=== PATIENT | female | born 1970 | race Caucasian/White ===

== ENCOUNTER 2017-03-17 20:49 | Emergency (ER) | payer MEDICAID ==
[~2017-03-17] VITALS: Ht 149.9 cm; Wt 63.5 kg
[2017-03-17 20:52] VITALS: BP 134/97
--- NOTE | 2017-03-17 20:59 | NUR ---
PT TAKEN TO BED 8
--- NOTE | 2017-03-17 21:04 | NUR ---
PT IS 46/F BIB FAMILY TO ED WITH C/O BACK PAIN X 6 DAYS. NO TRAUMA NOR INJURY. NO MEDICAL HX. DENIES N/V/D; SKIN IS PINK/WARM/DRY; AAOX4 WITH EVEN AND STEADY GAIT; LUNGS CLEAR BL; HR EVEN AND REGULAR; PT DENIES ANY FEVER, CP, SOB, OR COUGH AT THIS TIME; PATIENT STATES PAIN OF 7/10 AT THIS TIME; VSS; PATIENT POSITIONED FOR COMFORT; HOB ELEVATED; BEDRAILS UP X2; BED DOWN. ER MD MADE AWARE OF PT STATUS.
--- NOTE | 2017-03-17 21:24 | NUR ---
Dr. Moran evaluating patient at bedside.
--- NOTE | 2017-03-17 22:08 | NUR ---
PT RETURN FROM XRAY
[2017-03-17 22:15] LABS: BASOPHILS # (AUTO) 0.4 K/uL (0.00-0.22); EOSINOPHILS # (AUTO) 0.2 K/uL (0-0.4); EOSINOPHILS % (AUTO) 1.9 % (0.0-4.0); HEMATOCRIT 42.5 % (36-48); HEMOGLOBIN 13.5 g/dL (12.0-16.0); LYMPHOCYTES # (AUTO) 4.6 K/uL (2.5-16.5); LYMPHOCYTES % (AUTO) 36.8 % (20.5-51.1); MEAN CORPUSCULAR HEMOGLOBIN 26 pg (27-31); MEAN CORPUSCULAR HGB CONC 32 g/dL (33-37); MEAN CORPUSCULAR VOLUME 82 fL (80-94); MONOCYTES # (AUTO) 1.1 K/uL (0.8-1.0); MONOCYTES % (AUTO) 8.6 % (1.7-9.3); NEUTROPHILS # (AUTO) 6.2 K/uL (1.8-7.7); PLATELET COUNT (AUTO) 341 K/uL (140-450); RED BLOOD CELL COUNT(AUTO) 5.18 MIL/uL (4.20-5.40); RED CELL DISTRIBUTION WIDTH 12.8 % (11.6-13.7); WHITE BLOOD COUNT (AUTO) 12.5 K/uL (4.8-10.8)
[2017-03-17 22:18] LABS: INR 1.1 (0.8-1.2); PARTIAL THROMBOPLASTIN TIME 28.7 secs (22-35.6)
[2017-03-17 22:27] LABS: POTASSIUM 3.6 mmol/L (3.5-5.1)
[2017-03-17] MEDS: IBUPROFEN 800 MG TAB PO ONE (22:27)
[2017-03-17 22:28] LABS: ALBUMIN 3.7 g/dL (3.4-5.0); ANION GAP 11.6 (8-16); CREATININE 1.1 mg/dL (0.6-1.3); TOTAL BILIRUBIN 0.2 mg/dL (0.0-1.0); TOTAL PROTEIN, SERUM 7.8 g/dL (6.4-8.2)
[2017-03-17] MEDS: HYDROcodone/APAP 10/325 MG 1 TAB TAB PO STA (22:28)
--- NOTE | 2017-03-17 22:52 | NUR ---
PT RESTING IN BED. NO SOB NOTED. FAMILY AT BEDSIDE. WILL CONTINUE TO MONITOR.
[2017-03-17 23:47] VITALS: BP 122/86
--- NOTE | 2017-03-17 23:48 | NUR ---
Patient discharged with v/s stable. Written and verbal after care instructions given and explained. Patient alert, oriented and verbalized understanding of instructions. Ambulatory with steady gait. All questions addressed prior to discharge. ID band removed. Patient advised to follow up with PMD. Rx of FLEXERIL, IBUPROFEN, NORCO given. Patient educated on indication of medication including possible reaction and side effects. Opportunity to ask questions provided and answered. D/C INSTRUCTIONS AND TEACHING DONE BY ER MD DR THOMSON.
== END 2017-03-17 23:48 | disposition home or self-care (01) ==
LOC: MED 20:49
DX: S29.012A Strain of muscle and tendon of back wall of thorax, initial encounter (principal); X58.XXXA Exposure to other specified factors, initial encounter; Y93.89 Activity, other specified; Y92.89 Other specified places as the place of occurrence of the external cause; Y99.8 Other external cause status
CPT/HCPCS: 36415; 71010; 72110; 80053; 81002; 81025; 83880; 84484; 85025; 85610; 85730; 93005; 99285

== ENCOUNTER 2017-04-01 16:11 | Inpatient (IN) | payer MEDICAID ==
[~2017-04-01] VITALS: Ht 149.9 cm; Wt 64.4 kg
[2017-04-01 16:22] VITALS: BP 154/95
--- NOTE | 2017-04-01 17:59 | NUR ---
PT AMBULATED TO ER BED #3.
--- NOTE | 2017-04-01 18:00 | NUR ---
46 YO FEMALE BIB SELF FOR LEFT FLANK PAIN FOR 1 WEEK. PAIN 10/10 SHARP NON-RADIAITING. PT HAS NAUSEA BUT DENIES V/D. AAOx4, PERRLA, BREATHING EVEN AND UNLABORED. ERMD NOTIFIED OF PATIENT STATUS.
[2017-04-01] MEDS ORDERED: NACL 0.9% 1,000 ML IV SCH (18:01)
[2017-04-01] MEDS ORDERED: NACL 0.9% 500 ML IV SCH (18:02)
[2017-04-01] MEDS ORDERED: MORPHINE SULFATE 10 MG/ML SYR IVP ONE (18:05)
[2017-04-01] MEDS ORDERED: FAMOTIDINE 20 MG/2 ML VIAL IVP ONE (18:05)
[2017-04-01] MEDS ORDERED: ONDANSETRON 4 MG/2 ML VIAL IVP ONE (18:05)
--- NOTE | 2017-04-01 18:05 | NUR ---
Patient being evaluated by physician at bedside.
[2017-04-01 18:21] LABS: HEMATOCRIT 41.2 % (36-48); HEMOGLOBIN 13.2 g/dL (12.0-16.0); MEAN CORPUSCULAR HEMOGLOBIN 26 pg (27-31); MEAN CORPUSCULAR HGB CONC 32 g/dL (33-37); MEAN CORPUSCULAR VOLUME 82 fL (80-94); PLATELET COUNT (AUTO) 365 K/uL (140-450); RED BLOOD CELL COUNT(AUTO) 5.01 MIL/uL (4.20-5.40); RED CELL DISTRIBUTION WIDTH 12.6 % (11.6-13.7); WHITE BLOOD COUNT (AUTO) 19.1 K/uL (4.8-10.8)
[2017-04-01 18:33] LABS: ANION GAP 15.8 (8-16); CALCIUM 9.2 mg/dL (8.5-10.1); CARBON DIOXIDE 25.5 mmol/L (21-32); CREATININE 0.7 mg/dL (0.6-1.3); POTASSIUM 3.3 mmol/L (3.5-5.1)
[2017-04-01 18:39] LABS: ALBUMIN 3.9 g/dL (3.4-5.0); TOTAL BILIRUBIN 0.4 mg/dL (0.0-1.0); TOTAL PROTEIN, SERUM 8.2 g/dL (6.4-8.2)
[2017-04-01] MEDS ORDERED: cefTRIAXone 2,000 MG in DEXTROSE 5% 100 ML IV ONE (18:45)
[2017-04-01] MEDS ORDERED: cefTRIAXone 2,000 MG VIAL ONE (18:54)
[2017-04-01 19:00] LABS: BAND % (MANUAL) 3 % (0-8); EOSINOPHILS % (MANUAL) 1 % (0-4); LYMPHOCYTES % (MANUAL) 18 % (20-46); MONOCYTES % (MANUAL) 6 % (5-12); NEUTROPHILS % (MANUAL) 72 (43-65)
--- NOTE | 2017-04-01 19:00 | NUR ---
Pt report given to YANETH ZAMORA. Transfer of care at this time.
[2017-04-01 19:01] LABS: PLATELET ESTIMATE ADEQUATE
--- NOTE | 2017-04-01 19:10 | NUR ---
PT STABLE, VSS. CURRENTLY RECEIVING IV AMTIBIOTICS AD IV FLUIDS.
[2017-04-01 19:13] LABS: BILIRUBIN,URINE NEGATIVE (NEGATIVE); BLOOD, URINE 2+ (NEGATIVE); COLOR,URINE YELLOW (YELLOW); LEUKOCYTE ESTERASE ,URINE 2+ (NEGATIVE); NITRITE, URINE POSITIVE (NEGATIVE); PH,URINE 5.5 (5.0-9.0); PROTEIN,URINE NEGATIVE (NEGATIVE); UGLUCOSE NEGATIVE (NEGATIVE); UROBILINOGEN,URINE 0.2 EU/dL (0.2 - 1)
[2017-04-01 19:14] LABS: APPEARANCE,URINE HAZY (CLEAR)
[2017-04-01 19:21] LABS: BACTERIA,URINE 1+ /HPF (None Seen); RBC,URINE 0-5 (RARE) /HPF (0-5); SQUAMOUS EPITHELIAL CELL,UR 4-10 (MOD) /LPF (0-3 (FEW)); WBC,URINE >100 /HPF (0-5)
--- NOTE | 2017-04-01 19:29 | NUR ---
Patient will be admitted to care of DR CASTRO. Admited to TELEMETRY. Will go to room 123 B. Belongings list completed. Report to YANETH AUSTIN.
--- NOTE | 2017-04-01 19:35 | NUR ---
Admitted from [facility] with chief complaint of LEFT FLANK PAIN. A 46 y/o. Female, Appropriate. ICELANDIC-SPEAKING ONLY. FAMILY AT BEDSIDE DURING ADMISSION WHO CAN UNDERSTAND AND SPEAK ICELANDIC WELL. ALERT AWAKE ORIENTED X4. INITIAL ASSESSMENT DONE. NO S/S OF RESPIRATORY DISTRESS OR SOB NOTED. NO C/O PAIN OR ANY DISCOMFORT AT THIS TIME. SKIN IS INTACT CLEAN DRY AND WARM TO TOUCH. PLAN OF CARE REVIEWED TO PT AND FAMILY AT BEDSIDE AND VERBALIZED UNDERSTANDING. oriented to call light, bed, phone,television, bathroom, smoking policy, visiting hours, procedures, ID bracelet on. Belongings list checked. CALL LIGHT WITHIN REACH. WILL CONTINUE TO MONITOR.
--- NOTE | 2017-04-01 19:35 | NUR ---
PT TRAFERRED TO TELEMETRY FLOOR VIA KIKE ACCOMPANIED BY RN AND EMT. PT LAM, SUDHAS.
[2017-04-01] MEDS ORDERED: ONDANSETRON 4 MG/2 ML VIAL IVP PRN (19:40)
[2017-04-01] MEDS ORDERED: DOCUSATE SODIUM 100 MG GELCAP PO PRN (19:40)
[2017-04-01] MEDS ORDERED: POTASSIUM CHLORIDE 20% 40 MEQ/15 ML UDC PO ONE (19:45)
--- NOTE | 2017-04-01 19:50 | NUR ---
ULTRASOUND AT BEDSIDE.
[2017-04-01] MEDS: NACL 0.9% 1,000 ML IV SCH (20:00)
[2017-04-01 20:30] LABS: AMPHETAMINE, URINE NEG. ng/ml (NEG <=1000); BARBITURATE, URINE NEG. ng/ml (NEG <=200); BENZODIAZEPINE, URINE NEG. ng/mL (NEG <=200); CANNABINOID, URINE NEG. ng/mL (NEG <=50); COCAINE, URINE NEG. ng/mL (NEG <=300); OPIATE, URINE NEG. ng/mL (NEG <=2000); PHENCYCLIDINE SCREEN,URINE NEG. ng/mL (NEG <=25)
[2017-04-01 20:35] LABS: PARTIAL THROMBOPLASTIN TIME 29.6 secs (22-35.6); PROTHROMBIN TIME 9.4 secs (10.8-13.4)
[2017-04-01 20:37] LABS: CHOL/HDL RATIO 6.5 (1-4.5); PHOSPHORUS 2.8 mg/dL (2.5-4.9)
[2017-04-01 20:45] LABS: THYROID STIMULATING HORMONE 1.4 uIU/mL (0.34-3.76)
--- NOTE | 2017-04-01 21:00 | NUR ---
PT REFUSED TO HAVE SCD'S ON DESPITE EXPLAINING THE RISKS AND BENEFITS OF IT BECAUSE PT SAID THAT IT CAN MAKE HER UNCOMFORTABLE. WILL TRY TO CONVINCE HER AGAIN LATER. WILL CONTINUE TO MONITOR.
[2017-04-01] MEDS: ACETAMINOPHEN 325 MG TAB PO PRN (22:59)
[2017-04-02] VITALS: BP 125/70
--- NOTE | 2017-04-02 00:30 | NUR ---
PT IS SLEEPING RIGHT NOW BUT EASILY AROUSABLE. NO S/S OF ANY DISCOMFORT AT THIS TIME. ALL NEEDS ARE ATTENDED. CALL LIGHT WITHIN REACH. WILL CONTINUE TO MONITOR.
[2017-04-02 04:00] VITALS: BP 121/73
--- NOTE | 2017-04-02 05:40 | NUR ---
AM CARE RENDERED. BED LINEN CHANGED. INSTRUCTED PT TO REPOSITION. KEPT CLEAN AND DRY. CALL LIGHT WITHIN REACH. WILL CONTINUE TO MONITOR.
[2017-04-02] MEDS: NACL 0.9% 1,000 ML IV SCH ×2 (05:51→15:55)
[2017-04-02] MEDS: MORPHINE SULFATE 2 MG/ML SYR IVP PRN (06:35)
--- NOTE | 2017-04-02 07:22 | NUR ---
PT HAS NO S/S OF ANY DISCOMFORT. PLAN OF CARE ENDORSED TO ALEXA WOLFE AT BEDSIDE FOR CONTINUITY OF CARE.
--- NOTE | 2017-04-02 07:24 | NUR ---
RECEIVED REPORT FROM NIGHT YANETH AUSTIN. PT WASHING HANDS AT SINK. NO S/S OF ACUTE DISTRESS. AAOX4. PT STATES PAIN IS 1/10 AND REDUCED. PT ASSISTED BACK TO BED. SCD'S PLACED ON BLE. IV SITE PATENT AND INTACT. TELE BOX IN PLACE. CALL LIGHT WITHIN REACH. SAFETY MEASURES ENSURED. WILL CONTINUE TO MONITOR.
[2017-04-02 07:55] VITALS: BP 135/78
[2017-04-02] MEDS: LACTOBACILLUS RHAMNOSUS GG 1 EACH CAP PO SCH (09:01)
[2017-04-02] MEDS: PHENAZOPYRIDINE 100 MG TAB PO SCH ×3 (09:01→17:41)
--- NOTE | 2017-04-02 09:12 | NUR ---
AM MEDICATIONS GIVEN WITH EDUCATION. PT VERBALIZED UNDERSTANDING. PT TOLERATED WELL. NO S/S OF ACUTE DISTRESS. PT DENIES PAIN. CALL LIGHT WITHIN REACH. FAMILY AT BEDSIDE. WILL CONTINUE TO MONITOR.
--- NOTE | 2017-04-02 10:12 | NUR ---
PATIENT HAS BEEN SCREENED AND CATEGORIZED MODERATE NUTRITION RISK. PATIENT WILL BE SEEN WITHIN 3-5 DAYS OF ADMISSION. 04/04/17-04/06/[address]
--- NOTE | 2017-04-02 11:39 | NUR ---
PT UP AND AMBULATING TO BATHROOM. NO S/S OF ACUTE DISTRESS. PT DENIES PAIN. CALL LIGHT WITHIN REACH. SAFETY MEASURES ENSURED. WILL CONTINUE TO MONITOR.
[2017-04-02] MEDS ORDERED: PANTOPRAZOLE 40 MG INJ VIAL IVP SCH (11:45)
[2017-04-02 11:54] LABS: BASOPHILS # (AUTO) 0.1 K/uL (0.00-0.22); EOSINOPHILS # (AUTO) 0.1 K/uL (0-0.4); HEMATOCRIT 36.6 % (36-48); HEMOGLOBIN 12.1 g/dL (12.0-16.0); LYMPHOCYTES % (AUTO) 24.3 % (20.5-51.1); MEAN CORPUSCULAR HEMOGLOBIN 27 pg (27-31); MEAN CORPUSCULAR HGB CONC 33 g/dL (33-37); MEAN CORPUSCULAR VOLUME 81 fL (80-94); MONOCYTES # (AUTO) 0.7 K/uL (0.8-1.0); NEUTROPHILS # (AUTO) 8.5 K/uL (1.8-7.7); NEUTROPHILS % (AUTO) 67.7 % (42.2-75.2); PLATELET COUNT (AUTO) 336 K/uL (140-450); RED BLOOD CELL COUNT(AUTO) 4.49 MIL/uL (4.20-5.40); RED CELL DISTRIBUTION WIDTH 12.6 % (11.6-13.7); WHITE BLOOD COUNT (AUTO) 12.4 K/uL (4.8-10.8)
[2017-04-02 12:08] LABS: ANION GAP 13.2 (8-16); CALCIUM 8.3 mg/dL (8.5-10.1); CARBON DIOXIDE 25.2 mmol/L (21-32); CREATININE 0.7 mg/dL (0.6-1.3); POTASSIUM 3.4 mmol/L (3.5-5.1)
[2017-04-02 12:12] LABS: MAGNESIUM 1.7 mg/dL (1.8-2.4); PHOSPHORUS 2.9 mg/dL (2.5-4.9)
[2017-04-02] MEDS: FAMOTIDINE 20 MG/2 ML VIAL IV SCH (12:25)
--- NOTE | 2017-04-02 13:37 | NUR ---
PT RESTING IN BED. NO S/S OF ACUTE DISTRESS. PT DENIES PAIN. CALL LIGHT WITHIN REACH. SAFETY MEASURES ENSURED. WILL CONTINUE TO MONITOR.
--- NOTE | 2017-04-02 15:36 | NUR ---
PT RESTING IN BED. NO S/S OF ACUTE DISTRESS. PT DENIES PAIN. CALL LIGHT WITHIN REACH. SAFETY MEASURES ENSURED. WILL CONTINUE TO MONITOR.
[2017-04-02 16:00] VITALS: BP 127/77
--- NOTE | 2017-04-02 19:28 | NUR ---
ENDORSED PLAN OF CARE TO NIGHT RN. PT REMAINS IN STABLE CONDITION.
--- NOTE | 2017-04-02 20:00 | NUR ---
RECEIVED ALERT,ORIENTED,AMBULATORY,AZERBAIJANI SPEAKING ONLY. AFEBRILE, NOT IN ACUTE DISTRESS. VERBALIZED LEFT FLANK PAIN. IV FLUIDS NS INFUSING AT 100 ML/HR VIA RIGHT AC #20 IV LINE. FAMILY MEMBERS AT BEDSIDE. VS STABLE, WILL CONTINUE TO MONITOR. NEEDS ATTENDED.
[2017-04-02] MEDS: ACETAMINOPHEN 325 MG TAB PO PRN (21:10)
--- NOTE | 2017-04-02 21:10 | NUR ---
PT.OFFERED MORPHINE IVP OR TYLENOL PO FOR PAIN. PT. REFUSED MORPHINE. TYLENOL 325 MG PO GIVEN.
[2017-04-03] VITALS: BP 110/71
--- NOTE | 2017-04-03 | NUR ---
AWAKE,NOT IN ANY KIND OF DISTRESS. NO PAIN OR DISCOMFORT NOTED. SIDE RAILS UP,CALL LIGHT WITHIN REACH. KEPT WARM AND COMFORTABLE. VS REMAIN STABLE.
[2017-04-03] MEDS: NACL 0.9% 1,000 ML IV SCH ×4 (02:21→22:58)
--- NOTE | 2017-04-03 04:00 | NUR ---
ASLEEP,NOT IN ANY KIND OF DISTRESS. NO PAIN OR DISCOMFORT NOTED. NO SIGNIFICANT CHANGE IN CONDITION. WILL CONTINUE TO MONITOR.
[2017-04-03 06:20] LABS: BASOPHILS # (AUTO) 0.1 K/uL (0.00-0.22); BASOPHILS % (AUTO) 0.8 % (0.0-2.0); EOSINOPHILS # (AUTO) 0.2 K/uL (0-0.4); HEMATOCRIT 37.5 % (36-48); HEMOGLOBIN 12.6 g/dL (12.0-16.0); LYMPHOCYTES # (AUTO) 4.1 K/uL (2.5-16.5); LYMPHOCYTES % (AUTO) 33.3 % (20.5-51.1); MEAN CORPUSCULAR HEMOGLOBIN 27 pg (27-31); MEAN CORPUSCULAR HGB CONC 34 g/dL (33-37); MEAN CORPUSCULAR VOLUME 82 fL (80-94); MONOCYTES # (AUTO) 0.9 K/uL (0.8-1.0); NEUTROPHILS # (AUTO) 6.9 K/uL (1.8-7.7); NEUTROPHILS % (AUTO) 56.9 % (42.2-75.2); PLATELET COUNT (AUTO) 348 K/uL (140-450); RED BLOOD CELL COUNT(AUTO) 4.61 MIL/uL (4.20-5.40); RED CELL DISTRIBUTION WIDTH 12.6 % (11.6-13.7); WHITE BLOOD COUNT (AUTO) 12.2 K/uL (4.8-10.8)
[2017-04-03 06:45] LABS: ANION GAP 12.3 (8-16); CALCIUM 8.5 mg/dL (8.5-10.1); CARBON DIOXIDE 26.3 mmol/L (21-32); CREATININE 0.7 mg/dL (0.6-1.3); POTASSIUM 3.6 mmol/L (3.5-5.1)
[2017-04-03 06:57] LABS: MAGNESIUM 1.8 mg/dL (1.8-2.4); PHOSPHORUS 3.2 mg/dL (2.5-4.9)
--- NOTE | 2017-04-03 07:15 | NUR ---
ENDORSED CARE TO ALEXA WOLFE.
--- NOTE | 2017-04-03 07:17 | NUR ---
RECEIVED REPORT FROM NIGHT RN. PT RESTING IN BED. AAOX4. NO S/S OF ACUTE DISTRESS. PT DENIES PAIN. IV SITE PATENT AND INTACT. SCD'S AT BEDSIDE. CALL LIGHT WITHIN REACH. SAFETY MEASURES ENSURED. WILL CONTINUE TO MONITOR.
[2017-04-03 07:52] VITALS: BP 115/68
[2017-04-03] MEDS: PHENAZOPYRIDINE 100 MG TAB PO SCH ×3 (08:53→17:13)
[2017-04-03] MEDS: LACTOBACILLUS RHAMNOSUS GG 1 EACH CAP PO SCH (08:53)
--- NOTE | 2017-04-03 08:57 | NUR ---
AM MEDS GIVEN WITH EDUCATION. PT VERBALIZED UNDERSTANDING. NO S/S OF ACUTE DISTRESS. PT TOLERATED WELL. WILL CONTINUE TO MONITOR.
--- NOTE | 2017-04-03 10:04 | NUR ---
PT RESTING IN BED. NO S/S OF ACUTE DISTRESS. PT DENIES PAIN. CALL LIGHT WITHIN REACH. SAFETY MEASURES ENSURED. WILL CONTINUE TO MONITOR.
--- NOTE | 2017-04-03 12:01 | NUR ---
PT STATES SHE FEELS PALPITATIONS. PULSES REGULAR. NO S/S OF ACUTE DISTRESS. DR. MINOR MADE AWARE.
[2017-04-03] MEDS: FAMOTIDINE 20 MG/2 ML VIAL IV SCH (12:30)
--- NOTE | 2017-04-03 12:34 | NUR ---
PT STATES SHE IS HAVING 4/10 PAIN BUT REFUSES ANY PAIN MEDICATION AT THIS TIME.
[2017-04-03] MEDS: MORPHINE SULFATE 2 MG/ML SYR IVP PRN (13:40)
[2017-04-03 16:00] VITALS: BP 110/72
--- NOTE | 2017-04-03 16:13 | NUR ---
PT RESTING IN BED. NO S/S OF ACUTE DISTRESS. PT STATES PAIN IS 1/10. AT BEDSIDE. WILL CONTINUE TO MONITOR.
--- NOTE | 2017-04-03 19:30 | NUR ---
ENDORSED PLAN OF CARE TO NIGHT RN. PT REMAINS IN STABLE CONDITION.
--- NOTE | 2017-04-03 19:30 | NUR ---
Patient's Plan of Care was discussed and reviewed with SUBSEA ENGINEER: SURJIT
--- NOTE | 2017-04-03 19:31 | NUR ---
RECD. RESTING IN BED, AWAKE, A/OX4. RESPIRATION EVEN AND UNLABORED. IV OF NS AT 100 ML/HR INFUSING, RIGHT AC G20. [id number] WITH FAMILY AT THE BEDSIDE. STATED WITH ON AND OFF PAIN IN LOWER BACK AND ABDOMEN, 12/14. WILL MEDICATE ORDERED. PLAN OF CARE FOR THE SHIFT DISCUSSED. VERBALIZED UNDERSTANDING.
[2017-04-03] MEDS: HYDROcodone/APAP 7.5/325 MG 1 TAB PO PRN (19:57)
[2017-04-03] MEDS ORDERED: ZOLPIDEM 10 MG TAB PO SCH (22:10)
--- NOTE | 2017-04-03 22:15 | NUR ---
PAGED DR. VERA, INQUIRED IF HE IS COMING TO SEE PATIENT TONIGHT ENDORSED BY AM NURSE. STATED HE INFORMED RESIDENT THAT HE WILL NOT BE ABLE TO SURGERY TOMORROW ON PATIENT, NEED TO ORDER ANOTHER SURGEON TO SEE PATIENT.
--- NOTE | 2017-04-03 22:58 | NUR ---
UNABLE TO SLEEP, MEDICATED WITH AMBIEN 10 MG. PO ORDERED.
--- NOTE | 2017-04-03 23:00 | NUR ---
INFORMED DR. CASTRO REGARDING NEED FOR ANOTHER SURGERY CONSULT, WILL TAKE GOOD CARE OF THIS IN THE MORNING.
[2017-04-04] VITALS: BP 130/64
--- NOTE | 2017-04-04 | NUR ---
SLEEPING COMFORTABLY IN BED.
--- NOTE | 2017-04-04 02:00 | NUR ---
TRANFERRED TO ROOM 116.
[2017-04-04] MEDS: HYDROcodone/APAP 7.5/325 MG 1 TAB PO PRN ×2 (03:56→10:51)
[2017-04-04] MEDS: SIMETHICONE 80 MG TAB.CHEW PO SCH ×2 (05:28→12:22)
--- NOTE | 2017-04-04 05:28 | NUR ---
COMPLAINT OF FEELING OF GAS, MEDICATED WITH MYLICON ORDERED.
[2017-04-04 06:29] LABS: BASOPHILS # (AUTO) 0.1 K/uL (0.00-0.22); BASOPHILS % (AUTO) 0.9 % (0.0-2.0); EOSINOPHILS # (AUTO) 0.2 K/uL (0-0.4); EOSINOPHILS % (AUTO) 2.2 % (0.0-4.0); HEMOGLOBIN 11.8 g/dL (12.0-16.0); LYMPHOCYTES # (AUTO) 2.7 K/uL (2.5-16.5); LYMPHOCYTES % (AUTO) 29.9 % (20.5-51.1); MEAN CORPUSCULAR HEMOGLOBIN 27 pg (27-31); MEAN CORPUSCULAR HGB CONC 33 g/dL (33-37); MEAN CORPUSCULAR VOLUME 83 fL (80-94); MONOCYTES # (AUTO) 0.8 K/uL (0.8-1.0); MONOCYTES % (AUTO) 9.4 % (1.7-9.3); NEUTROPHILS # (AUTO) 5.1 K/uL (1.8-7.7); NEUTROPHILS % (AUTO) 57.6 % (42.2-75.2); PLATELET COUNT (AUTO) 313 K/uL (140-450); RED BLOOD CELL COUNT(AUTO) 4.37 MIL/uL (4.20-5.40); RED CELL DISTRIBUTION WIDTH 12.6 % (11.6-13.7); WHITE BLOOD COUNT (AUTO) 8.9 K/uL (4.8-10.8)
[2017-04-04 06:46] LABS: ANION GAP 12.9 (8-16); CALCIUM 8.2 mg/dL (8.5-10.1); CARBON DIOXIDE 25.5 mmol/L (21-32); CREATININE 0.7 mg/dL (0.6-1.3); POTASSIUM 3.4 mmol/L (3.5-5.1)
--- NOTE | 2017-04-04 06:48 | NUR ---
CONDITION REMAIN STABLE. WILL ENDORSE TO AM NURSE ELLIS CONTINUITY OF CARE.
[2017-04-04 06:53] LABS: MAGNESIUM 1.7 mg/dL (1.8-2.4); PHOSPHORUS 3.1 mg/dL (2.5-4.9)
--- NOTE | 2017-04-04 07:20 | NUR ---
ENDORSED TO RADHA RN FOR CONTINUITY OF CARE.
--- NOTE | 2017-04-04 07:21 | NUR ---
PT ALERT AND ORIENTED X4, CZECH SPEAKING. BREATHING EVENLY AND UNLABORED, NO SIGNS OF ACUTE DISTRESS. SKIN IS WARM AND DRY. NO SIGNS OF ANY BOWEL/BLADDER DISCOMFORT. NOM C/O ANY PAIN OR DISCOMFORT AT THIS TIME, ALL NEEDS ATTENDED, SAFETY PRECAUTIONS MAINTAINED. CALL LIGHT WITHIN REACH.
--- NOTE | 2017-04-04 07:47 | NUR ---
RECEIVED ORDER FROM DR. MINOR, MARCH D/C PATIENT TODAY. NOTED AND CARRIED OUT.
[2017-04-04 08:00] VITALS: BP 126/78
[2017-04-04] MEDS ORDERED: MAGNESIUM OXIDE 400 MG TAB PO SCH (08:12)
[2017-04-04] MEDS ORDERED: POTASSIUM CHLORIDE 10 MEQ TABER PO SCH (08:12)
[2017-04-04] MEDS ORDERED: ACET-2869 PO (08:54)
[2017-04-04] MEDS ORDERED: ATOR40TA PO (08:54)
[2017-04-04] MEDS ORDERED: IBUP-2213 PO (08:54)
[2017-04-04] MEDS ORDERED: LACT10CA PO (08:54)
[2017-04-04] MEDS ORDERED: SIME80CT27 PO (08:54)
[2017-04-04] MEDS ORDERED: CIPR500T4 PO (08:54)
[2017-04-04] MEDS ORDERED: DOCU-67 PO (08:54)
[2017-04-04] MEDS ORDERED: METH750T5 PO (08:54)
[2017-04-04] MEDS ORDERED: ONDA4TAB PO (08:54)
[2017-04-04] MEDS: NACL 0.9% 1,000 ML IV SCH (09:00)
[2017-04-04] MEDS ORDERED: ATORVASTATIN 20 MG TAB PO SCH (09:00)
[2017-04-04] MEDS: LACTOBACILLUS RHAMNOSUS GG 1 EACH CAP PO SCH (09:02)
[2017-04-04] MEDS: FAMOTIDINE 20 MG/2 ML VIAL IV SCH (11:38)
[2017-04-04] MEDS ORDERED: KETOROLAC 10 MG TAB PO PRN (13:55)
[2017-04-04] MEDS ORDERED: ONDANSETRON 4 MG TAB PO PRN (13:55)
--- NOTE | 2017-04-04 13:58 | NUR ---
SPOKE WITH DR. TROY, MADE AWARE PT WITH EPISODE OF NAUSEA AND HEAD ACHE. NEW ORDERS RECEIVED. CONTINUE TO MONITOR.
--- NOTE | 2017-04-04 15:20 | NUR ---
PT ALERT AND ORIENTED, NO SIGNS OF ACUTE DISTRESS. MAY D/C HOME ORDERED. EDUCATED TO FOLLOW UP WITH PCP IN 1 WEEK. DISCHARGE PRESCRIPTIONS REVIEWED, INDICATIONS AND SIDE EFFECTS. PT VERBALIZED UNDERSTANDING. WRIST BANDS AND IV LINE REMOVED. PERSONAL BELONGINGS WITH PT UPON DISCHARGE. PT TO GO HOME WITH FAMILY VIA PRIVATE AUTO
[2017-04-04] MEDS ORDERED: ZOLPIDEM 10 MG TAB PO SCH (21:00)
== END 2017-04-04 15:20 | disposition home or self-care (01) | DRG 720 ==
LOC: MED 16:11 → MTU 19:35
PROVIDERS: ADMIT Family Medicine; ATTEND Family Medicine
DX: A41.9 Sepsis, unspecified organism (principal); K85.90 Acute pancreatitis without necrosis or infection, unspecified; N12 Tubulo-interstitial nephritis, not specified as acute or chronic; E87.6 Hypokalemia; E78.5 Hyperlipidemia, unspecified; N23 Unspecified renal colic; N39.0 Urinary tract infection, site not specified; M51.27 Other intervertebral disc displacement, lumbosacral region; K82.8 Other specified diseases of gallbladder; B96.20 Unspecified Escherichia coli [E. coli] as the cause of diseases classified elsewhere; E83.42 Hypomagnesemia; E78.1 Pure hyperglyceridemia; Z72.89 Other problems related to lifestyle; Z90.49 Acquired absence of other specified parts of digestive tract; Z71.3 Dietary counseling and surveillance
CPT/HCPCS: 36415; 76700; 76770; 80048; 80053; 80305; 81001; 81025; 82150; 83036; 83605; 83690; 83735; 83880; 84100; 84443; 84702; 85025; 85610; 85730; 86886; 86900; 86901; 87040; 87081; 87086; 87186; 93005; 96361; 96374; 96375; 99285; J0696; J2270; J2405; J3490; J7030; J7060; Q0092; Q0162

== ENCOUNTER 2017-12-22 03:08 | Emergency (ER) | payer MEDICAID ==
[~2017-12-22] VITALS: Ht 147.3 cm; Wt 61.2 kg
[~2017-12-22 03:08] MED LIST: ACET-2869 PO; ATOR40TA PO; CIPR500T4 PO; DOCU-299 PO; IBUP-2213 PO; LACT10CA PO; METH750T5 PO; ONDA4TAB PO; SIME80CT27 PO
[2017-12-22 03:13] VITALS: BP 146/74
--- NOTE | 2017-12-22 03:21 | NUR ---
PATIENT PRESENTS TO ED WITH C/O NECK PAIN WITH N/V X 3 DAYS. PAIN RADIATES TO BACK. TOOK TYLENOL 650 MG AT 2300. PT SKIN IS PINK/WARM/DRY; AAOX4 WITH EVEN AND STEADY GAIT; LUNGS CLEAR BL; HR EVEN AND REGULAR; PT DENIES ANY FEVER, CP, SOB, OR COUGH AT THIS TIME; PATIENT STATES PAIN OF 6/10 AT THIS TIME; VSS; PATIENT POSITIONED FOR COMFORT; HOB ELEVATED; BEDRAILS UP X2; BED DOWN. ER MD MADE AWARE OF PT STATUS.
[2017-12-22] MEDS ORDERED: KETOROLAC 30 MG/ML VIAL IM ONE (03:30)
[2017-12-22] MEDS ORDERED: CYCLOBENZAPRINE 10 MG TAB PO ONE (03:30)
[2017-12-22] MEDS ORDERED: MORPHINE SULFATE 4 MG/ML SYR IM ONE (04:20)
[2017-12-22] MEDS ORDERED: MORPHINE SULFATE 2 MG/ML SYR ONE (04:25)
--- NOTE | 2017-12-22 05:36 | NUR ---
Patient discharged with v/s stable. Written and verbal after care instructions given and explained. Patient alert, oriented and verbalized understanding of instructions. Ambulatory with steady gait. All questions addressed prior to discharge. ID band removed. Patient advised to follow up with PMD. Rx of IBUPROFEN AND FLEXERIL given. Patient educated on indication of medication including possible reaction and side effects. Opportunity to ask questions provided and answered.
[2017-12-22 05:38] VITALS: BP 132/78
== END 2017-12-22 05:38 | disposition home or self-care (01) ==
LOC: MED 03:08
DX: S16.1XXA Strain of muscle, fascia and tendon at neck level, initial encounter (principal); M25.511 Pain in right shoulder; M25.512 Pain in left shoulder; F43.9 Reaction to severe stress, unspecified; I10 Essential (primary) hypertension
CPT/HCPCS: 72050; 96372; 99284; J1885; J2270; 81002; 81025

== ENCOUNTER 2018-06-17 03:58 | Emergency (ER) | payer MEDICAID ==
[~2018-06-17] VITALS: Ht 162.6 cm; Wt 72.6 kg
[2018-06-17 04:01] VITALS: BP 126/100
--- NOTE | 2018-06-17 04:09 | NUR ---
PT TO ER BED 9
--- NOTE | 2018-06-17 04:11 | NUR ---
48/F CAME IN ED WITH , C/O 8 SHARP, BURNING EPIGASTRIC PAIN, RADIATING TO LLQ AND L SHOULDER, X5 DAYS. PT REPORTS NAUSEA AND DYSURIA, DENIES VOMITING, DIARRHEA, FEVER. LUNG SOUNDS CLEAR BL. LBM YESTERDAY, ABD SOFT ROUND SLIGHT TENDERNESS ON L ABD. PT DENIES MED HX, SURGICAL HX APPENDECTOMY, C/S X2. ER MD MADE AWARE.
[2018-06-17 04:49] LABS: BASOPHILS # (AUTO) 0.1 K/uL (0.00-0.22); BASOPHILS % (AUTO) 0.7 % (0.0-2.0); EOSINOPHILS # (AUTO) 0.2 K/uL (0-0.4); EOSINOPHILS % (AUTO) 1.6 % (0.0-4.0); HEMATOCRIT 39.6 % (36-48); HEMOGLOBIN 12.9 g/dL (12.0-16.0); LYMPHOCYTES # (AUTO) 3.7 K/uL (2.5-16.5); LYMPHOCYTES % (AUTO) 38.7 % (20.5-51.1); MEAN CORPUSCULAR HEMOGLOBIN 27 pg (27-31); MEAN CORPUSCULAR HGB CONC 33 g/dL (33-37); MEAN CORPUSCULAR VOLUME 82.7 fL (80-94); MONOCYTES # (AUTO) 0.7 K/uL (0.8-1.0); MONOCYTES % (AUTO) 7.9 % (1.7-9.3); NEUTROPHILS # (AUTO) 4.8 K/uL (1.8-7.7); NEUTROPHILS % (AUTO) 51.1 % (42.2-75.2); PLATELET COUNT (AUTO) 315 K/uL (140-450); RED BLOOD CELL COUNT(AUTO) 4.78 MIL/uL (4.20-5.40); RED CELL DISTRIBUTION WIDTH 13.9 % (11.6-13.7); WHITE BLOOD COUNT (AUTO) 9.5 K/uL (4.8-10.8)
[2018-06-17] MEDS ORDERED: DICYCLOMINE HCL LIQUID 20 MG, ALUMINUM HYD/MAG/SIMETHICONE 30 ML, LIDOCAINE VISCOUS 2% ... PO ONE ×3 (04:55)
[2018-06-17] MEDS ORDERED: ONDANSETRON 4 MG ODT PO ONE (04:55)
[2018-06-17 05:04] LABS: ALBUMIN 3.3 g/dL (3.4-5.0); ANION GAP 9.4 (8-16); CARBON DIOXIDE 29.3 mmol/L (21-32); CREATININE 0.7 mg/dL (0.6-1.3); POTASSIUM 3.7 mmol/L (3.5-5.1); TOTAL BILIRUBIN 0.5 mg/dL (0.0-1.0)
[2018-06-17] MEDS ORDERED: KETOROLAC 30 MG/ML VIAL IM ONE (05:20)
--- NOTE | 2018-06-17 05:50 | NUR ---
PT REPORTS 1/10 PAIN AT THIS TIME, DENIES NAUSEA. ALL NEEDS MET .
[2018-06-17 06:09] VITALS: BP 120/76
--- NOTE | 2018-06-17 06:09 | NUR ---
Patient discharged with v/s stable. Written and verbal after care instructions given and explained. Patient alert, oriented and verbalized understanding of instructions. Ambulatory with steady gait. All questions addressed prior to discharge. ID band removed. Patient advised to follow up with PMD. Rx of MYLANTA, TYLENOL given. Patient educated on indication of medication including possible reaction and side effects. Opportunity to ask questions provided and answered.
== END 2018-06-17 06:08 | disposition home or self-care (01) ==
LOC: MED 03:58
DX: R10.12 Left upper quadrant pain (principal); R19.7 Diarrhea, unspecified; Z90.89 Acquired absence of other organs; Z79.2 Long term (current) use of antibiotics; Z79.899 Other long term (current) drug therapy
CPT/HCPCS: 36415; 80053; 81002; 81025; 83690; 85025; 96372; 99284; J1885; S0119

== ENCOUNTER 2018-06-23 01:15 | Emergency (ER) | payer MEDICAID ==
[~2018-06-23] VITALS: Ht 149.9 cm; Wt 60.3 kg
[2018-06-23 01:19] VITALS: BP 126/100
--- NOTE | 2018-06-23 01:26 | NUR ---
TO ER BED 3
--- NOTE | 2018-06-23 01:26 | NUR ---
48/F CAME IN W C/O UPPER ABD PAIN X 2 WEEKS, WORSENED TODAY. PT REPORTS SHE WAS SEEN HERE LAST WEEK AND WAS GIVEN MYLANTA RX. REPORTS NAUSEA AND DIARRHEA. ABD SOFT AND DISTENDED, BS ACTIVE X4. DENIES PMH
[2018-06-23] MEDS ORDERED: NACL 0.9% 1,000 ML IV ONE (01:28)
[2018-06-23] MEDS ORDERED: ONDANSETRON 4 MG/2 ML VIAL IVP ONE (01:30)
[2018-06-23] MEDS ORDERED: MORPHINE SULFATE 4 MG/ML SYR IVP ONE (01:30)
[2018-06-23 01:44] LABS: APPEARANCE,URINE CLEAR (CLEAR); BILIRUBIN,URINE NEGATIVE (NEGATIVE); BLOOD, URINE 1+ (NEGATIVE); COLOR,URINE YELLOW (YELLOW); LEUKOCYTE ESTERASE ,URINE NEGATIVE (NEGATIVE); NITRITE, URINE NEGATIVE (NEGATIVE); PH,URINE 7.5 (5.0-9.0); UGLUCOSE NEGATIVE (NEGATIVE)
[2018-06-23 01:44] LABS: BASOPHILS # (AUTO) 0.1 K/uL (0.00-0.22); BASOPHILS % (AUTO) 0.6 % (0.0-2.0); EOSINOPHILS # (AUTO) 0.2 K/uL (0-0.4); EOSINOPHILS % (AUTO) 1.3 % (0.0-4.0); HEMATOCRIT 38.2 % (36-48); HEMOGLOBIN 12.5 g/dL (12.0-16.0); LYMPHOCYTES # (AUTO) 4.6 K/uL (2.5-16.5); LYMPHOCYTES % (AUTO) 37.2 % (20.5-51.1); MEAN CORPUSCULAR HEMOGLOBIN 27 pg (27-31); MEAN CORPUSCULAR HGB CONC 33 g/dL (33-37); MEAN CORPUSCULAR VOLUME 82.5 fL (80-94); MONOCYTES # (AUTO) 1.1 K/uL (0.8-1.0); MONOCYTES % (AUTO) 8.4 % (1.7-9.3); NEUTROPHILS # (AUTO) 6.5 K/uL (1.8-7.7); NEUTROPHILS % (AUTO) 52.5 % (42.2-75.2); PLATELET COUNT (AUTO) 320 K/uL (140-450); RED BLOOD CELL COUNT(AUTO) 4.63 MIL/uL (4.20-5.40); RED CELL DISTRIBUTION WIDTH 13.9 % (11.6-13.7); WHITE BLOOD COUNT (AUTO) 12.5 K/uL (4.8-10.8)
[2018-06-23] MEDS ORDERED: MORPHINE SULFATE 2 MG/ML SYR ONE (01:45)
[2018-06-23 02:01] LABS: ALBUMIN 3.7 g/dL (3.4-5.0); ANION GAP 10.5 (8-16); CREATININE 0.7 mg/dL (0.6-1.3); POTASSIUM 3.5 mmol/L (3.5-5.1); TOTAL BILIRUBIN 0.2 mg/dL (0.0-1.0)
[2018-06-23 02:04] LABS: RBC,URINE 0-5 (RARE) /HPF (0-5); WBC,URINE 0-5 (RARE) /HPF (0-5)
--- NOTE | 2018-06-23 02:15 | NUR ---
PT TAKEN TO CT
[2018-06-23] MEDS ORDERED: MAGNESIUM CITRATE 300 ML BTL PO ONE (03:35)
--- NOTE | 2018-06-23 03:35 | NUR ---
Patient discharged with v/s stable. Written and verbal after care instructions given and explained. Patient verbalized understanding. Ambulatory with steady gait. All questions addressed prior to discharge. Advised to follow up with PMD.
[2018-06-23 03:40] VITALS: BP 132/82
== END 2018-06-23 03:35 | disposition home or self-care (01) ==
LOC: MED 01:15
DX: R10.11 Right upper quadrant pain (principal); R10.12 Left upper quadrant pain; R19.7 Diarrhea, unspecified; Z90.89 Acquired absence of other organs; Z79.899 Other long term (current) drug therapy; Z79.1 Long term (current) use of non-steroidal anti-inflammatories (NSAID)
CPT/HCPCS: 36415; 80053; 81001; 81025; 83690; 85025; 96361; 96374; 96375; 99285; J2270; J2405; J7030

== ENCOUNTER 2018-11-14 19:07 | Emergency (ER) | payer MEDICAID ==
[~2018-11-14] VITALS: Ht 157.5 cm; Wt 58.5 kg
[~2018-11-14 19:07] MED LIST changes: -ACET-2869 PO; +HYDR-5122 PO
[2018-11-14 19:16] VITALS: BP 125/73
[2018-11-14] MEDS ORDERED: NACL 0.9% 1,000 ML IV SCH (19:33)
[2018-11-14] MEDS ORDERED: KETOROLAC 30 MG/ML VIAL IVP ONE (19:35)
[2018-11-14] MEDS ORDERED: ONDANSETRON 4 MG/2 ML VIAL IVP ONE (19:35)
[2018-11-14 19:55] LABS: BASOPHILS % (AUTO) 0.4 % (0.0-2.0); EOSINOPHILS # (AUTO) 0.2 K/uL (0-0.4); EOSINOPHILS % (AUTO) 1.5 % (0.0-4.0); HEMOGLOBIN 12.6 g/dL (12.0-16.0); LYMPHOCYTES % (AUTO) 37.4 % (20.5-51.1); MEAN CORPUSCULAR HEMOGLOBIN 27 pg (27-31); MEAN CORPUSCULAR HGB CONC 32 g/dL (33-37); MEAN CORPUSCULAR VOLUME 82.1 fL (80-94); MONOCYTES # (AUTO) 0.8 K/uL (0.8-1.0); NEUTROPHILS # (AUTO) 5.6 K/uL (1.8-7.7); NEUTROPHILS % (AUTO) 52.7 % (42.2-75.2); PLATELET COUNT (AUTO) 297 K/uL (140-450); RED BLOOD CELL COUNT(AUTO) 4.75 MIL/uL (4.20-5.40); RED CELL DISTRIBUTION WIDTH 13.5 % (11.6-13.7); WHITE BLOOD COUNT (AUTO) 10.6 K/uL (4.8-10.8)
[2018-11-14 20:25] LABS: APPEARANCE,URINE CLEAR (CLEAR); BILIRUBIN,URINE NEGATIVE (NEGATIVE); BLOOD, URINE 1+ (NEGATIVE); COLOR,URINE STRAW (YELLOW); LEUKOCYTE ESTERASE ,URINE NEGATIVE (NEGATIVE); NITRITE, URINE NEGATIVE (NEGATIVE); UGLUCOSE NEGATIVE (NEGATIVE)
[2018-11-14 20:26] LABS: RBC,URINE 3-10 (FEW) /HPF (0-5); WBC,URINE NONE SEEN /HPF (0-5)
[2018-11-14 20:28] LABS: ALBUMIN 3.7 g/dL (3.4-5.0); ANION GAP 9.5 (8-16); CARBON DIOXIDE 29.8 mmol/L (21-32); CREATININE 0.8 mg/dL (0.6-1.3); POTASSIUM 3.3 mmol/L (3.5-5.1); TOTAL BILIRUBIN 0.2 mg/dL (0.0-1.0)
[2018-11-14 21:05] VITALS: BP 117/63
== END 2018-11-14 21:05 | disposition home or self-care (01) ==
LOC: MED 19:07
DX: R10.13 Epigastric pain (principal); R11.0 Nausea; Z79.1 Long term (current) use of non-steroidal anti-inflammatories (NSAID); Z79.2 Long term (current) use of antibiotics; Z79.891 Long term (current) use of opiate analgesic; Z79.899 Other long term (current) drug therapy; Z90.49 Acquired absence of other specified parts of digestive tract
CPT/HCPCS: 36415; 74176; 80053; 81001; 81025; 83690; 85025; 96374; 96375; 99284; J1885; J2405; J7030

== ENCOUNTER 2019-01-04 21:48 | Emergency (ER) | payer MEDICAID ==
[~2019-01-04] VITALS: Ht 157.5 cm; Wt 58.1 kg
[2019-01-04 21:55] VITALS: BP 130/72
[2019-01-04] MEDS ORDERED: diphenhydrAMINE 50 MG CAP PO ONE (21:55)
--- NOTE | 2019-01-04 21:55 | NUR ---
PT TRIAGED IN CHAIR E WITH VSS. PT TO REMAIL IN CHAIR E FOR CONTINUED MONITORING.
--- NOTE | 2019-01-04 22:00 | NUR ---
PT IS A 48 Y/O FEMALE WHO PRESENTS TO THE ED FOR ALLERGIC REACTION. PT STATES THAT SHE WAS EATING SHRIMP AND FELT HER THROAT CLOSING. PT DENIES PAIN AT THIS TIME. NOTED REDNESS, GENERAL BODY ITCHINESS, NONPRODUCTIVE COUGH NOTED. 100% ON RA, LUNG SOUNDS CLEAR BL. PT AWAKE AND ALERT, RR EVEN/UNLABORED. PT REPOSITIONED FOR COMFORT, SITTING IN CHAIR. ER MD DR. ZALDIVAR NOTIFIED. WILL CONTINUE TO MONITOR. NO PMH ALLERGIES---SHRIMP
--- NOTE | 2019-01-04 23:43 | NUR ---
PATIENT SITTING IN CHAIR QUIETLY AT THIS TIME, 98% ON RA. NO SIGNS OF DISTRESS.
--- NOTE | 2019-01-05 00:05 | NUR ---
PT MOVED TO ED 05. ASSUMED CARE OF PT. PLACED ON ALL MONITORS. VSS. WILL CONTINUE TO MONITOR.
--- NOTE | 2019-01-05 01:53 | NUR ---
PT SLEEPING AT THIS TIME. NO NEW COMPLAINTS OR CONCERNS. WILL CONTINUE TO MONITOR.
[2019-01-05 02:41] VITALS: BP 121/77
--- NOTE | 2019-01-05 02:41 | NUR ---
Patient discharged with v/s stable. Written and verbal after care instructions given and explained. Patient alert, oriented and verbalized understanding of instructions. Ambulatory with steady gait. All questions addressed prior to discharge. ID band removed. Patient advised to follow up with PMD. Rx of Prednisone and Benadryl given. Patient educated on indication of medication including possible reaction and side effects. Opportunity to ask questions provided and answered.
== END 2019-01-05 02:41 | disposition home or self-care (01) ==
LOC: MED 21:48
DX: T78.40XA Allergy, unspecified, initial encounter (principal); Z90.49 Acquired absence of other specified parts of digestive tract; Z79.899 Other long term (current) drug therapy; Z91.013 Allergy to seafood; X58.XXXA Exposure to other specified factors, initial encounter; Y93.89 Activity, other specified; Y92.89 Other specified places as the place of occurrence of the external cause; Y99.8 Other external cause status
CPT/HCPCS: 99283; Q0163

== ENCOUNTER 2019-04-15 23:11 | Emergency (ER) | payer MEDICAID ==
[~2019-04-15] VITALS: Ht 152.4 cm; Wt 58.5 kg
[2019-04-15 23:30] VITALS: BP 133/81
--- NOTE | 2019-04-15 23:32 | NUR ---
TO LOBBY A/W BED AMBULATORY
--- NOTE | 2019-04-16 00:14 | NUR ---
PATIENT AMBULATED TO ER BED 4
--- NOTE | 2019-04-16 00:25 | NUR ---
48 YO F BIB SELF AND PRESENTS TO ED C/O 06/13 LOWER ABD PAIN RADIATING TO HER BACK FOR 3 DAYS ACCOMPANIED BY NAUSEA.
[2019-04-16] MEDS ORDERED: PHENAZOPYRIDINE 100 MG TAB PO ONE (00:45)
[2019-04-16] MEDS ORDERED: KETOROLAC 60 MG/2 ML VIAL IM ONE (00:45)
[2019-04-16] MEDS ORDERED: cefTRIAXone 1,000 MG in LIDOCAINE MPF 1% - 5 mL VIAL 2.1 ML IM ONE (00:45)
[2019-04-16 01:30] VITALS: BP 133/81
--- NOTE | 2019-04-16 01:30 | NUR ---
Patient discharged with v/s stable. Written and verbal after care instructions given and explained. Patient alert, oriented and verbalized understanding of instructions. Ambulatory with steady gait. All questions addressed prior to discharge. ID band removed. Patient advised to follow up with PMD. Rx of MOTRIN, BACTRIM, PYRIDIUM given. Patient educated on indication of medication including possible reaction and side effects. Opportunity to ask questions provided and answered.
== END 2019-04-16 01:30 | disposition home or self-care (01) ==
LOC: MED 23:11
DX: K59.00 Constipation, unspecified (principal); N39.0 Urinary tract infection, site not specified; Z79.899 Other long term (current) drug therapy; Z91.013 Allergy to seafood
CPT/HCPCS: 74022; 96372; 99283; J0696; J1885; J2001

== ENCOUNTER 2020-04-28 15:50 | Emergency (ER) | payer MEDICAID ==
[~2020-04-28] VITALS: Ht 147.3 cm; Wt 58.1 kg
[2020-04-28 16:21] VITALS: BP 127/63
--- NOTE | 2020-04-28 16:52 | NUR ---
Pt taken to [facility] bed C.
--- NOTE | 2020-04-28 17:00 | NUR ---
50/F c/o right hand pain and left knee s/p fall yesterday. Patient reports she had a mechanical slip and fall at the grocery store. Pt c/o 10 pain. Pt c/o worsening pain with ambulation.
[2020-04-28] MEDS ORDERED: KETOROLAC 30 MG/ML VIAL IM ONE (17:05)
[2020-04-28 18:20] VITALS: BP 112/72
--- NOTE | 2020-04-28 18:20 | NUR ---
Patient discharged with v/s stable. Written and verbal after care instructions given and explained. Patient alert, oriented and verbalized understanding of instructions. Ambulatory with steady gait. All questions addressed prior to discharge. ID band removed. Patient advised to follow up with PMD. Rx of Naprosyn 500mg given. Patient educated on indication of medication including possible reaction and side effects. Opportunity to ask questions provided and answered.
== END 2020-04-28 18:20 | disposition home or self-care (01) ==
LOC: MED 15:50
DX: S83.8X2A Sprain of other specified parts of left knee, initial encounter (principal); S60.221A Contusion of right hand, initial encounter; M65.341 Trigger finger, right ring finger; Z90.49 Acquired absence of other specified parts of digestive tract; Z79.899 Other long term (current) drug therapy; Z91.013 Allergy to seafood; Z98.890 Other specified postprocedural states; W19.XXXA Unspecified fall, initial encounter; Y93.89 Activity, other specified; Y92.512 Supermarket, store or market as the place of occurrence of the external cause; Y99.8 Other external cause status
CPT/HCPCS: 29125; 73130; 73562; 96372; 99284; J1885; 29515

== ENCOUNTER 2020-11-01 10:42 | Emergency (ER) | payer MEDICAID ==
[~2020-11-01] VITALS: Ht 144.8 cm; Wt 56.7 kg
[2020-11-01 11:35] VITALS: BP 136/92
--- NOTE | 2020-11-01 13:39 | NUR ---
Patient discharged with v/s stable. Written and verbal after care instructions given and explained. Patient alert, oriented and verbalized understanding of instructions. Ambulatory with steady gait. All questions addressed prior to discharge. ID band removed. Patient advised to follow up with PMD. Rx of AZITHROMYCIN, NAPROSYN, ROBIUTSSIN given. Patient educated on indication of medication including possible reaction and side effects. Opportunity to ask questions provided and answered.
[2020-11-01 13:40] VITALS: BP 142/64
== END 2020-11-01 13:39 | disposition home or self-care (01) ==
LOC: MED 10:42
DX: J20.9 Acute bronchitis, unspecified (principal); Z79.899 Other long term (current) drug therapy; Z91.013 Allergy to seafood
CPT/HCPCS: 71045; 99283

== ENCOUNTER 2020-12-25 12:24 | Emergency (ER) | payer MEDICAID ==
[~2020-12-25] VITALS: Ht 149.9 cm; Wt 60.3 kg
[2020-12-25 12:26] VITALS: BP 124/82
--- NOTE | 2020-12-25 12:30 | NUR ---
PT AMBULATED TO BED 6 WITH STEADY GAIT
--- NOTE | 2020-12-25 12:38 | NUR ---
50 Y/O FEMALE C/O LEFT SHOULDER PAIN X 2 DAYS. DENIES TRAUMA/INJURY. PT RATES PAIN IS 8/10 THAT RADIATES FROM LEFT SIDE OF NECK DOWN TO ELBOW. PT TOOK TYLENOL WITH LITTLE RELIEF. PT STATES THAT WHEN SHE RAISES HER ARM, IT FEELS LIKE IT IS TEARING. ON ASSESSMENT, LIMITED ROM AND IS TENDER TO TOUCH, CAP REFILL <3 SECONDS, AND EQUAL +2 RADIAL AND BRACHIAL PULSES BILATERAL. PT IS A/O X4 WITH EVEN AND UNLABORED RESPIRATIONS. PT LAYING IN BED WITH BED IN LOWEST POSITION, BRAKES LOCKED, X1 SIDERAIL UP. PMH: DENIES NKA
--- NOTE | 2020-12-25 13:15 | NUR ---
YONATAN PATINO AT BEDSIDE FOR EVALUATION
--- NOTE | 2020-12-25 13:18 | NUR ---
MD Subramanian at bedside
[2020-12-25] MEDS ORDERED: KETOROLAC 30 MG/ML VIAL IM ONE (13:25)
--- NOTE | 2020-12-25 13:57 | NUR ---
radiology at bedside
[2020-12-25] MEDS ORDERED: DICL1GEL19 TP (14:52)
[2020-12-25] MEDS ORDERED: ACET-8386 PO (14:52)
[2020-12-25] MEDS ORDERED: PRED50TA3 PO (14:52)
[2020-12-25 15:07] VITALS: BP 124/82
--- NOTE | 2020-12-25 15:08 | NUR ---
Patient discharged with v/s stable. Written and verbal after care instructions given and explained. Patient alert, oriented and verbalized understanding of instructions. Ambulatory with steady gait. All questions addressed prior to discharge. ID band removed. Patient advised to follow up with PMD. Rx of diclofenac sodium 100gm gel, prednisone 50 mg tab, and hydrocordone 5mg/acetaminophen 325mg tab given. Patient educated on indication of medication including possible reaction and side effects. Opportunity to ask questions provided and answered.
== END 2020-12-25 15:08 | disposition home or self-care (01) ==
LOC: MED 12:24
DX: M75.32 Calcific tendinitis of left shoulder (principal); Z91.013 Allergy to seafood; Z90.49 Acquired absence of other specified parts of digestive tract; Z79.899 Other long term (current) drug therapy
CPT/HCPCS: 73020; 96372; 99283; J1885

== ENCOUNTER 2021-01-05 14:04 | Emergency (ER) | payer MEDICAID ==
[~2021-01-05] VITALS: Ht 154.9 cm; Wt 60.8 kg
[~2021-01-05 14:04] MED LIST changes: +ACET-8386 PO; +DICL1GEL19 TP; +PRED50TA3 PO
[2021-01-05 14:11] VITALS: BP 138/98
[2021-01-05 14:57] LABS: HEMATOCRIT 39.8 % (36-48); HEMOGLOBIN 12.8 g/dL (12.0-16.0); MEAN CORPUSCULAR HEMOGLOBIN 27 pg (27-31); MEAN CORPUSCULAR HGB CONC 32 g/dL (33-37); MEAN CORPUSCULAR VOLUME 82.8 fL (80-94); PLATELET COUNT (AUTO) 385 K/uL (140-450); RED CELL DISTRIBUTION WIDTH 13.6 % (11.6-13.7); WHITE BLOOD COUNT (AUTO) 17.3 K/uL (4.8-10.8)
[2021-01-05 15:15] LABS: ANION GAP 14.8 (8-16); CARBON DIOXIDE 25.8 mmol/L (21-32); POTASSIUM 3.6 mmol/L (3.5-5.1)
[2021-01-05 15:16] LABS: CREATININE 0.5 mg/dL (0.6-1.3); TOTAL BILIRUBIN 0.4 mg/dL (0.0-1.0)
[2021-01-05 15:19] LABS: EOSINOPHILS % (MANUAL) 1 % (0-4); LYMPHOCYTES % (MANUAL) 10 % (20-46); METAMYELOCYTES % 1 % (0-0); MONOCYTES % (MANUAL) 6 % (5-12)
[2021-01-05] MEDS ORDERED: MORPHINE SULFATE 4 MG/ML SYR IM ONE (15:20)
[2021-01-05] MEDS ORDERED: NACL 0.9% 1,000 ML IV ONE ×2 (16:05→16:35)
[2021-01-05 16:23] LABS: APPEARANCE,URINE CLEAR (CLEAR); BILIRUBIN,URINE NEGATIVE (NEGATIVE); BLOOD, URINE TRACE-I (NEGATIVE); COLOR,URINE YELLOW (YELLOW); LEUKOCYTE ESTERASE ,URINE NEGATIVE (NEGATIVE); NITRITE, URINE NEGATIVE (NEGATIVE); UGLUCOSE NEGATIVE (NEGATIVE)
[2021-01-05 16:31] LABS: WBC,URINE 0-5 /HPF (0-5)
[2021-01-05] MEDS ORDERED: PIPERACILLIN/TAZOBACTAM 3.375 GM in DEXTROSE 5% 50 ML IV ONE (16:35)
[2021-01-05] MEDS ORDERED: PIPERACILLIN/TAZOBACTAM 3.375 GM VIAL IV ONE (17:03)
[2021-01-05 18:47] LABS: BASOPHILS % (AUTO) 0.2 % (0.0-2.0); HEMATOCRIT 37.4 % (36-48); HEMOGLOBIN 12.2 g/dL (12.0-16.0); LYMPHOCYTES # (AUTO) 1.6 K/uL (2.5-16.5); LYMPHOCYTES % (AUTO) 11.9 % (20.5-51.1); MEAN CORPUSCULAR HEMOGLOBIN 27 pg (27-31); MEAN CORPUSCULAR HGB CONC 33 g/dL (33-37); MEAN CORPUSCULAR VOLUME 83.2 fL (80-94); MONOCYTES # (AUTO) 0.4 K/uL (0.8-1.0); MONOCYTES % (AUTO) 3.2 % (1.7-9.3); NEUTROPHILS # (AUTO) 11.1 K/uL (1.8-7.7); NEUTROPHILS % (AUTO) 84.7 % (42.2-75.2); PLATELET COUNT (AUTO) 341 K/uL (140-450); RED BLOOD CELL COUNT(AUTO) 4.49 MIL/uL (4.20-5.40); RED CELL DISTRIBUTION WIDTH 13.5 % (11.6-13.7); WHITE BLOOD COUNT (AUTO) 13.1 K/uL (4.8-10.8)
[2021-01-05 20:28] VITALS: BP 120/73
== END 2021-01-05 20:28 | disposition home or self-care (01) ==
LOC: MED 14:04
DX: M25.562 Pain in left knee (principal); R07.9 Chest pain, unspecified; Z91.013 Allergy to seafood; Z79.899 Other long term (current) drug therapy; Z90.49 Acquired absence of other specified parts of digestive tract; X58.XXXA Exposure to other specified factors, initial encounter; Y93.89 Activity, other specified; Y92.89 Other specified places as the place of occurrence of the external cause; Y99.8 Other external cause status
CPT/HCPCS: 29505; 36415; 71045; 71260; 73560; 74177; 80053; 81001; 81025; 83605; 83880; 84484; 85025; 85379; 87040; 93005; 96361; 96365; 96372; 99285; J2270; J2543; J7030; J7060; Q9967

== ENCOUNTER 2022-09-26 08:03 | Day surgery (SDC) | payer OTHER ==
[~2022-09-26] VITALS: Ht 149.9 cm; Wt 65.3 kg
[~2022-09-26 08:03] MED LIST changes: -ACET-8386 PO; +CEPH-588 PO; -CIPR500T4 PO; -DICL1GEL19 TP; -DOCU-299 PO; -HYDR-5122 PO; -LACT10CA PO; -METH750T5 PO; -ONDA4TAB PO; -PRED50TA3 PO; -SIME80CT27 PO
[2022-09-26] MEDS ORDERED: diphenhydrAMINE 50 MG/ML VIAL ONE (08:36)
[2022-09-26] MEDS ORDERED: fentaNYL citrate 0.05 MG/ML VIAL ONE (08:37)
[2022-09-26] MEDS ORDERED: MIDAZOLAM 2 MG/2 ML VIAL ONE (08:37)
[2022-09-26] MEDS: MIDAZOLAM 2 MG/2 ML VIAL IVP ONE (08:52)
[2022-09-26] MEDS: LIDOCAINE 2% 100 MG/5 ML UJET TP ONE (08:53)
[2022-09-26] MEDS: fentaNYL citrate 0.05 MG/ML VIAL IVP ONE (08:53)
== END 2022-09-26 09:52 | disposition home or self-care (01) ==
LOC: MOR 08:03 → MMU 08:04 → MOR 09:52 → MERGE 14:10
PROVIDERS: ATTEND Internal Medicine Gastroenterology
DX: Z12.11 Encounter for screening for malignant neoplasm of colon (principal); E78.5 Hyperlipidemia, unspecified; M19.90 Unspecified osteoarthritis, unspecified site; Z90.49 Acquired absence of other specified parts of digestive tract; Z20.822 Contact with and (suspected) exposure to COVID-19
CPT/HCPCS: 45378; 87426; J2250; J3010; J1200

== ENCOUNTER 2023-05-09 11:57 | Emergency (ER) | payer OTHER ==
[~2023-05-09] VITALS: Ht 146.1 cm; Wt 63.0 kg
--- NOTE | 2023-05-09 12:30 | NUR ---
PT GIVEN GOWN TO CHANGE FOR EXAM AND URINE SPECIMEN CUP
--- NOTE | 2023-05-09 12:30 | NUR ---
PT AMBULATED TO BED 04
[2023-05-09 12:31] VITALS: BP 101/78; PULSE 118; RESP 20; TEMP 99.4; O2SAT 100
--- NOTE | 2023-05-09 12:35 | NUR ---
53 Y/O FEMALE BIB SELF, PATIENT PRESENTS TO ED WITH ABDOMINAL PAIN THAT STARTED 1 WEEK AGO, LOW APPETITE AND DIARRHEA THAT STARTED THIS MORNING. PT STATES SHE HAD GALLBLADDER AND APPENDIX REMOVED LAST YEAR AROUND AUGUST. DENIES N/V/D; SKIN IS PINK/WARM/DRY; AAOX4, AUSTRIAN SPEAKING, AMBULATES WITH EVEN AND STEADY GAIT; LUNGS CLEAR BL; HR EVEN AND REGULAR; PT DENIES ANY FEVER, CP, SOB, OR COUGH AT THIS TIME; PATIENT STATES PAIN OF 8/10 AT THIS TIME; VSS; PATIENT POSITIONED FOR COMFORT; HOB ELEVATED; BEDRAILS UP X2; BED DOWN. ER MD MADE AWARE OF PT STATUS. CALL LIGHT WITHIN REACH. PMH: PREDIABETES ALLERGY: SHRIMP, SEAFOOD
[2023-05-09] MEDS ORDERED: NACL 0.9% 1,000 ML IV ONE (12:45)
[2023-05-09] MEDS ORDERED: MORPHINE SULFATE 4 MG/ML SYR IVP ONE ×2 (12:45→13:50)
[2023-05-09] MEDS ORDERED: FAMOTIDINE 20 MG/2 ML VIAL IVP ONE (12:45)
[2023-05-09] MEDS ORDERED: ONDANSETRON 4 MG/2 ML VIAL IVP ONE (12:45)
[2023-05-09 13:14] LABS: BASOPHILS # (AUTO) 0.1 K/uL (0.00-0.22); BASOPHILS % (AUTO) 0.8 % (0.0-2.0); EOSINOPHILS % (AUTO) 0.2 % (0.0-4.0); HEMATOCRIT 38.6 % (36-48); HEMOGLOBIN 12.9 g/dL (12.0-16.0); LYMPHOCYTES # (AUTO) 1.8 K/uL (2.5-16.5); LYMPHOCYTES % (AUTO) 13.6 % (20.5-51.1); MEAN CORPUSCULAR HEMOGLOBIN 27 pg (27-31); MEAN CORPUSCULAR HGB CONC 33 g/dL (33-37); MEAN CORPUSCULAR VOLUME 80.9 fL (80-94); MONOCYTES # (AUTO) 0.9 K/uL (0.8-1.0); MONOCYTES % (AUTO) 7.3 % (1.7-9.3); NEUTROPHILS # (AUTO) 10.2 K/uL (1.8-7.7); NEUTROPHILS % (AUTO) 78.1 % (42.2-75.2); PLATELET COUNT (AUTO) 304 K/uL (140-450); RED BLOOD CELL COUNT(AUTO) 4.77 MIL/uL (4.20-5.40); RED CELL DISTRIBUTION WIDTH 13.7 % (11.6-13.7)
[2023-05-09 13:14] LABS: APPEARANCE,URINE CLEAR (CLEAR); BILIRUBIN,URINE NEGATIVE (NEGATIVE); BLOOD, URINE 3+ (NEGATIVE); COLOR,URINE YELLOW (YELLOW); LEUKOCYTE ESTERASE ,URINE 2+ (NEGATIVE); NITRITE, URINE NEGATIVE (NEGATIVE); UGLUCOSE NEGATIVE (NEGATIVE)
[2023-05-09 13:30] LABS: ALBUMIN 3.6 g/dL (3.4-5.0); ANION GAP 11.7 (8-16); CARBON DIOXIDE 28.8 mmol/L (21-32); CREATININE 0.8 mg/dL (0.6-1.3); POTASSIUM 3.5 mmol/L (3.5-5.1); TOTAL BILIRUBIN 0.3 mg/dL (0.0-1.0)
[2023-05-09 13:37] LABS: RBC,URINE 11-20 (MOD) /HPF (0-5)
[2023-05-09] MEDS ORDERED: HYDR-5080 PO (15:26)
[2023-05-09] MEDS ORDERED: AMOX-999 PO (15:26)
[2023-05-09] MEDS ORDERED: IBUP-1842 PO (15:27)
[2023-05-09] MEDS ORDERED: ACET-8905 PO (15:29)
[2023-05-09 15:34] VITALS: BP 101/78; PULSE 118; RESP 20; TEMP 99.4; O2SAT 100
--- NOTE | 2023-05-09 15:35 | NUR ---
Patient discharged with v/s stable. Written and verbal after care instructions given and explained. Patient alert, oriented and verbalized understanding of instructions. Ambulatory with to car. All questions addressed prior to discharge. ID band removed. Patient advised to follow up with PMD. Rx of AUGMENTIN, NORCO, MOTRIN (SENT) given. Patient educated on indication of medication including possible reaction and side effects. Opportunity to ask questions provided and answered.
== END 2023-05-09 15:34 | disposition home or self-care (01) ==
LOC: MED 11:57
DX: R10.13 Epigastric pain (principal); R11.0 Nausea; R19.7 Diarrhea, unspecified; E11.9 Type 2 diabetes mellitus without complications; Z90.49 Acquired absence of other specified parts of digestive tract; Z98.890 Other specified postprocedural states; Z79.899 Other long term (current) drug therapy; Z79.1 Long term (current) use of non-steroidal anti-inflammatories (NSAID); Z79.2 Long term (current) use of antibiotics
CPT/HCPCS: 36415; 74177; 80053; 81001; 81025; 83690; 85025; 87086; 96361; 96374; 96375; 96376; 99285; J2270; J2405; J3490; J7030; Q9967

== ENCOUNTER 2023-12-30 14:13 | Emergency (ER) | payer OTHER ==
[~2023-12-30] VITALS: Ht 152.4 cm; Wt 61.2 kg
[~2023-12-30 14:13] MED LIST changes: +ACET-8905 PO; +AMOX-999 PO; -ATOR40TA PO; -CEPH-588 PO; +HYDR-5080 PO; +IBUP-1842 PO; -IBUP-2213 PO
[2023-12-30 14:34] VITALS: BP 127/80; PULSE 82; RESP 18; TEMP 97.7; O2SAT 97
[2023-12-30] MEDS ORDERED: DOXY-690 PO (16:18)
[2023-12-30] MEDS ORDERED: ALBU0.0912 INH (16:18)
[2023-12-30] MEDS: MAGNESIUM OXIDE 400 MG TAB PO ONE (16:56)
[2023-12-30] MEDS: KETOROLAC 30 MG/ML VIAL IM ONE (16:58)
[2023-12-30 18:59] VITALS: BP 122/71; PULSE 80; RESP 18; TEMP 98; O2SAT 99
== END 2023-12-30 18:59 | disposition home or self-care (01) ==
LOC: MED 14:13
DX: J18.9 Pneumonia, unspecified organism (principal); J40 Bronchitis, not specified as acute or chronic; E11.9 Type 2 diabetes mellitus without complications; E78.00 Pure hypercholesterolemia, unspecified; Z79.899 Other long term (current) drug therapy
CPT/HCPCS: 71046; 93005; 96372; 99283; J1885

== ENCOUNTER 2024-01-03 11:26 | Emergency (ER) | payer OTHER ==
[~2024-01-03] VITALS: Ht 154.9 cm; Wt 61.7 kg
[~2024-01-03 11:26] MED LIST changes: +ALBU0.0912 INH; +DOXY-690 PO
[2024-01-03 11:56] VITALS: BP 129/77; PULSE 83; RESP 19; TEMP 98.9; O2SAT 98
[2024-01-03] MEDS: KETOROLAC 30 MG/ML VIAL IM ONE (12:52)
[2024-01-03] MEDS ORDERED: ROB PO (13:23)
[2024-01-03] MEDS ORDERED: PRED20TA5 PO (13:23)
== END 2024-01-03 13:31 | disposition home or self-care (01) ==
LOC: MED 11:26
DX: J20.9 Acute bronchitis, unspecified (principal); Z79.899 Other long term (current) drug therapy
CPT/HCPCS: 96372; 99283; J1885

== ENCOUNTER 2024-01-08 16:10 | Emergency (ER) | payer OTHER ==
[~2024-01-08] VITALS: Ht 157.5 cm; Wt 61.2 kg
[~2024-01-08 16:10] MED LIST changes: +PRED20TA5 PO; +ROB PO
[2024-01-08 16:33] VITALS: BP 110/77; PULSE 71; RESP 19; TEMP 98.8; O2SAT 98
[2024-01-08] MEDS ORDERED: PRED20TA5 PO (17:28)
[2024-01-08] MEDS ORDERED: ACET-8905 PO (17:28)
[2024-01-08] MEDS: KETOROLAC 60 MG/2 ML VIAL IM ONE (18:01)
[2024-01-08 18:02] VITALS: BP 110/77; PULSE 71; RESP 19; TEMP 98.8; O2SAT 98
== END 2024-01-08 18:02 | disposition home or self-care (01) ==
LOC: MED 16:10
DX: R05.9 Cough, unspecified (principal); R07.89 Other chest pain; E11.9 Type 2 diabetes mellitus without complications; Z79.899 Other long term (current) drug therapy; Z79.4 Long term (current) use of insulin
CPT/HCPCS: 71045; 96372; 99283; J1885